=== PATIENT | female | born 1985 ===

== ENCOUNTER 2021-04-29 10:18 | Outpatient (CLI) | payer OTHER, SELFPAY ==
--- NOTE | ~2021-04-29 | CT_ITS ---
EXAMINATION: CT abdomen pelvis wo/w con EXAM DATE: 04/29/2021 10:59 INDICATION: Gross hematuria. TECHNIQUE: Spiral CT of the abdomen and pelvis was performed without contrast. The patient was then injected with small bolus intravenous Omnipaque 350, followed by delay of approximately 10 minutes to allow collecting system to opacify. A post contrast scan abdomen and pelvis was performed during inj ection of remaining contrast. A total of 130 cc intravenous contrast was administered. The dose-bettina th product (DLP) for this examination was 981.65 mGy-cm. The exposure was tailored according to eddie ent size (auto mA exposure control), and iterative reconstruction (ASIR) was used as additional dose reduction technique. There is no prior study for comparison. FINDINGS: There is no hydronephrosis or nephrolithiasis. The kidneys enhance symmetrically. There ar e no suspicious renal lesions. The calyces and opacified portions of ureters are unremarkable, witho ut filling defects or focal suspicious strictures. Mild bladder wall trabeculation. There is small f ocal region of mild bladder wall thickening at expected insertion of urachus, appreciated on sagittal sequence 605, image 73. The uterus is retroverted and morphologically normal. The liver, spleen, adrenal glands and pancreas are unremarkable. Gallbladder is unremarkable. No bi liary obstruction. There is no retroperitoneal or pelvic lymphadenopathy. Possible appendectomy. The stomach and small bowel are unremarkable. There is expected amount of co lonic stool. No free intraperitoneal gas. The heart is normal in size. There are no pericardial or pleural effusions. The lung bases are unremarkable. The bones are unremarkable. IMPRESSION: 1. Mild bladder wall trabeculation. Focal region is mild wall thickening at expected insertion of ur achus, probably congenital. 2. Otherwise unremarkable exam. Reviewed, dictated and finalized at location B. IMPRESSION: 1. Mild bladder wall trabeculation. Focal region is mild wall thickening at ex pected insertion of urachus, probably congenital. 2. Otherwise unremarkable exam.
--- NOTE | ~2021-04-29 | XR_ITS ---
EXAMINATION: XR abdomen/kub 1V EXAM DATE: 04/29/2021 10:43 INDICATION: Gross Hematuria gross hematuria. TECHNIQUE: Frontal projection of the upper abdomen, frontal projection lower abdomen/pelvis for inter pretation. Correlation is made to CT urogram same date. FINDINGS: There is expected amount of colonic stool and gas. No small bowel dilation, nonobstructiv e bowel gas pattern. There are no suspicious calcifications identified. There is no organomegaly suspected. The bones are unremarkable. There is no free intraperitoneal air. The lung bases are clear. IMPRESSION: Unremarkable abdomen x-ray exam. Reviewed, dictated and finalized at location B.
== END 2021-04-29 10:19 ==
PROVIDERS: Visit Provider Nurse Practitioner Adult Health
DX: R31.0 Gross hematuria (principal); R93.41 Abnormal radiologic findings on diagnostic imaging of renal pelvis, ureter, or bladder
CPT/HCPCS: 74018; 74178; Q9967